=== PATIENT | female | born 1970 | race Caucasian/White ===

== ENCOUNTER 2018-05-15 08:03 | Emergency (ER) | payer OTHER ==
[~2018-05-15] VITALS: Ht 162.6 cm; Wt 94.4 kg
[2018-05-15 08:42] LABS: HEMATOCRIT 41.6 % (36.0-46.0); HEMOGLOBIN 14.3 G/DL (11.9-15.5); MCH 29.5 PG (29.0-34.0); MCHC 34.4 G/DL (30.0-36.0); PLATELET COUNT 261 K/uL (156-360); RBC DIS.WIDTH-CV 12.8 % (11.8-14.6); RBC DIS.WIDTH-SD 40.3 % (39-53); RED BLOOD COUNT 4.84 M/uL (3.80-5.20); WHITE BLOOD COUNT 11.5 K/uL (4.1-10.2)
[2018-05-15 09:05] LABS: ALBUMIN 4.1 g/dL (3.2-4.8); CHLORIDE 108 mEq/L (99-109); POTASSIUM 4.2 mEq/L (3.7-5.4); SODIUM 139 mEq/L (136-147)
[2018-05-15 09:07] LABS: GLUCOSE 116 mg/dL (70-99)
[2018-05-15 09:08] LABS: TOTAL PROTEIN 7.2 g/dL (6.4-8.3)
[2018-05-15 09:09] LABS: TOTAL BILIRUBIN 2.3 mg/dL (0.0-1.0)
[2018-05-15 09:11] LABS: ALKALINE PHOSPHATASE 93 IU/L (3-129); CREATININE 0.9 mg/dL (0.6-1.3); GFR ESTIMATE (CALCULATED) > 59 mL/min/
[2018-05-15 09:12] LABS: TROP-I INTERPRETATION NEGATIVE; TROPONIN-I < 0.01 ng/mL (0.0-0.30); UREA NITROGEN (BUN) 12 mg/dL (9-23)
[2018-05-15 09:13] LABS: AST (GOT) 213 IU/L (2-34)
[2018-05-15 09:14] LABS: ALT (GPT) 134 IU/L (3-49)
[2018-05-15 11:24] LABS: TROP-I INTERPRETATION NEGATIVE; TROPONIN-I < 0.01 ng/mL (0.0-0.30)
[2018-05-15 11:40] LABS: LIPASE 21 U/L (1.0-51.0)
[2018-05-15] MEDS ORDERED: LORTAB 5-325 M1 EACH PO (14:53)
[2018-05-15] MEDS ORDERED: ZOFRAN ODT4 MG PO (14:53)
[2018-05-15 15:25] VITALS: BP 137/69
== END 2018-05-15 15:28 | disposition home or self-care (01) ==
LOC: EME 08:03
PROVIDERS: Nurse Practitioner Family
DX: K80.20 Calculus of gallbladder without cholecystitis without obstruction (principal); R07.89 Other chest pain; R79.89 Other specified abnormal findings of blood chemistry; M25.512 Pain in left shoulder
CPT/HCPCS: 71046; 74181; 76705; 80053; 82248; 83690; 84484; 85027; 93005; 99281; 99284